=== PATIENT | female | born 2005 | race Two or more races ===

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

== ENCOUNTER 2024-06-24 17:15 | Inpatient (IN) | payer MEDICAID ==
[~2024-06-24] VITALS: Ht 157.5 cm; Wt 109.3 kg
[~2024-06-24 17:15] MED LIST: IBUP-1455 PO
[2024-06-24 19:21] LABS: Urine Bacteria FEW /hpf (None Seen); Urine Blood 3+ /uL (Negative); Urine Clarity Clear (Clear); Urine Color Light-Yellow (Yellow); Urine Mucus FEW (None Seen); Urine Protein, UAD Negative (Negative); Urine Urobilinogen Normal (Negative); Urine WBC 8 /hpf (0 - 5); Urine pH 5.5 (5.0-9.0)
[2024-06-24] MEDS: PIPERACILLIN-TAZOB 3.375GM 100 ML IV ONE (22:00)
[2024-06-24 22:09] LABS: Basophils # (auto) 0 10 ^3/uL (0-0.2); Basophils % (auto) 0.3 % (0.0-2.0); Eosinophils # (auto) 0.3 10 ^3/uL (0-0.8); Eosinophils % (auto) 1.8 % (0.0-7.0); Hematocrit 36.5 % (36.0-46.0); Hemoglobin 11.9 g/dL (12.2-16.2); Lymphocytes # (auto) 1.9 10 ^3/uL (0.4-5.4); Lymphocytes % (auto) 12.4 % (10.0-50.0); Mean Corpuscular Hemoglobin 27.2 pg (28.0-32.0); Mean Corpuscular Hgb Conc. 32.6 g/dL (32.0-36.0); Mean Corpuscular Volume 83.5 fL (80.0-100.0); Monocytes # (auto) 0.9 10 ^3/uL (0-1.3); Monocytes % (auto) 5.4 % (0.0-12.0); Neutrophils # (auto) 12.6 10 ^3/uL (1.6-8.6); Neutrophils % (auto) 80.1 % (37.0-80.0); Platelet Count (auto) 359 10^3/uL (140-450); Red Blood Cells 4.37 10^6/uL (4.0-5.20); White Blood Cell 15.7 10^3/uL (4.4-10.8)
[2024-06-24 22:27] LABS: Alanine Aminotransferase 12 U/L (7-40); Albumin 4.6 g/dL (3.2-4.8); Alkaline Phosphatase 77 U/L (46-116); Anion Gap 7 (5-15); Aspartate Aminotransferase 13 U/L (13-40); BUN/Creatinine Ratio 9.1 (10.0-20.0); Blood Urea Nitrogen 6 mg/dL (9-23); Calcium 10.1 mg/dL (8.7-10.4); Carbon Dioxide 26 mmol/L (20-31); Chloride 105 mmol/L (98-107); Glucose 93 mg/dL (74-106); Lipase 32 U/L (12-53); Potassium 4.3 mmol/L (3.5-5.1); Sodium 138 mmol/L (136-145)
[2024-06-24 22:28] LABS: Bilirubin, Total 0.7 mg/dL (0.2-1.0); Total Protein 7.9 g/dL (5.7-8.2)
[2024-06-24] MEDS: SODIUM CHLORIDE 0.9% 1,000 ML IV SCH (23:45)
[2024-06-24 23:47] LABS: Amphetamine Screen, Urine Neg (NEGATIVE); Barbiturate Scree,Urine Neg (NEGATIVE); Benzodiazephine Screen, Urine Neg (NEGATIVE); Cannabinoid Screen, Urine Neg (NEGATIVE); Cocaine Screen, Urine Neg (NEGATIVE); Opiate Scree,Urine Neg (NEGATIVE); Phencyclidine Screen, Urine Neg (NEGATIVE)
[2024-06-24 23:50] LABS: Prothrombin Time 10.6 sec (9.3-11.8)
[2024-06-25] VITALS (7 sets, daily range): BP systolic 103–160; BP diastolic 52–65; PULSE 102–120; RESP 16–20; TEMP 97.7–99.1; O2SAT 94–98
[2024-06-25] MEDS: PIPERACILLIN-TAZOB 3.375GM 100 ML IV SCH (02:07)
[2024-06-25] MEDS: SODIUM CHLORIDE 0.9% 1,000 ML IV ONE (02:10)
[2024-06-25] MEDS ORDERED: TRAZ-228 PO (02:57)
[2024-06-25] MEDS ORDERED: DESV100T8 PO (02:58)
[2024-06-25 07:29] LABS: Basophils # (auto) 0.1 10 ^3/uL (0-0.2); Basophils % (auto) 0.3 % (0.0-2.0); Eosinophils # (auto) 0.2 10 ^3/uL (0-0.8); Eosinophils % (auto) 1.4 % (0.0-7.0); Hematocrit 33.3 % (36.0-46.0); Hemoglobin 11.3 g/dL (12.2-16.2); Lymphocytes % (auto) 13.3 % (10.0-50.0); Mean Corpuscular Hemoglobin 28.2 pg (28.0-32.0); Mean Corpuscular Volume 83.2 fL (80.0-100.0); Monocytes % (auto) 6.8 % (0.0-12.0); Neutrophils # (auto) 11.9 10 ^3/uL (1.6-8.6); Neutrophils % (auto) 78.2 % (37.0-80.0); Platelet Count (auto) 337 10^3/uL (140-450); Red Blood Cells 4.01 10^6/uL (4.0-5.20); White Blood Cell 15.2 10^3/uL (4.4-10.8)
[2024-06-25 07:38] LABS: Alanine Aminotransferase 10 U/L (7-40); Albumin 4.2 g/dL (3.2-4.8); Alkaline Phosphatase 73 U/L (46-116); Anion Gap 7 (5-15); Aspartate Aminotransferase 12 U/L (13-40); BUN/Creatinine Ratio 7.2 (10.0-20.0); Bilirubin, Total 1.2 mg/dL (0.2-1.0); Blood Urea Nitrogen 6 mg/dL (9-23); Calcium 9.7 mg/dL (8.7-10.4); Carbon Dioxide 26 mmol/L (20-31); Chloride 106 mmol/L (98-107); Glucose 100 mg/dL (74-106); Potassium 3.9 mmol/L (3.5-5.1); Sodium 139 mmol/L (136-145)
[2024-06-25 07:39] LABS: Total Protein 7.3 g/dL (5.7-8.2)
[2024-06-25] MEDS ORDERED: ONDANSETRON HCL 4 MG/2 ML VIAL IV PRN (09:30)
[2024-06-25] MEDS ORDERED: ceFAZolin 2 GM/D5W100ml 100 ML IV ONE (12:21)
[2024-06-25] MEDS ORDERED: BUPIVACAINE 0.25% INJ 50ML VIAL ONE (12:34)
[2024-06-25] MEDS ORDERED: MIDAZOLAM HCL 2MG/2ML 2ml VIAL (1mg/ml) ONE (12:51)
[2024-06-25] MEDS ORDERED: fentaNYL CITRATE 100 MCG/2 ML VL ONE (12:51)
[2024-06-25] MEDS ORDERED: PROPOFOL 10 MG/ML 20 ML IV ONE ×2 (12:55→14:27)
[2024-06-25] MEDS ORDERED: ONDANSETRON HCL 4 MG/2 ML VIAL ONE (12:56)
[2024-06-25] MEDS ORDERED: LIDOCAINE 1% INJ PF 5ML AMP ONE (12:56)
[2024-06-25] MEDS ORDERED: ROCURONIUM 10MG/ML 10ML VIAL IV ONE (13:04)
[2024-06-25] MEDS ORDERED: MEPERIDINE HCL (50 MG/ML) 1 ML VIAL ONE (13:47)
[2024-06-25] MEDS: BUPIVACAINE 0.25% INJ 50ML VIAL IJ ONE (13:52)
[2024-06-25] MEDS ORDERED: NEOSTIGMINE 1 MG/ML INJ (10mg/10ML VIAL) ONE (14:28)
[2024-06-25] MEDS ORDERED: GLYCOPYRROLATE 0.2 MG/ML 1ML VIAL ONE (14:28)
[2024-06-25] MEDS ORDERED: HYDROmorphone HCL 2 MG/ML VL/or syr IV PRN ×2 (14:45)
[2024-06-25] MEDS ORDERED: ONDANSETRON HCL 4 MG/2 ML VIAL IV ONE (14:45)
[2024-06-25] MEDS: POLYETHYLENE GLYCOL 17 GM PWDR PO ONE (15:45)
[2024-06-25] MEDS: D5W/SOD CHL 0.45% 1,000 ML IV SCH ×2 (15:50→18:15)
[2024-06-25] MEDS ORDERED: ARIP1TAB63 PO (17:42)
[2024-06-25] MEDS: DOCUSATE SOD 100 MG CAP PO SCH (21:41)
[2024-06-25] MEDS: traZODone HCL 50 MG TAB PO SCH (21:41)
[2024-06-25] MEDS: MORPHINE SULFATE INJ 2 MG/ml SYRG IV PRN (21:42)
[2024-06-26] VITALS (8 sets, daily range): BP systolic 104–125; BP diastolic 44–78; PULSE 63–108; RESP 17–20; TEMP 98.1–99.2; O2SAT 90–97
[2024-06-26 05:56] LABS: Basophils # (auto) 0 10 ^3/uL (0-0.2); Basophils % (auto) 0.3 % (0.0-2.0); Eosinophils # (auto) 0.3 10 ^3/uL (0-0.8); Eosinophils % (auto) 2.5 % (0.0-7.0); Hematocrit 32.2 % (36.0-46.0); Hemoglobin 10.6 g/dL (12.2-16.2); Lymphocytes % (auto) 17.3 % (10.0-50.0); Mean Corpuscular Hemoglobin 27.7 pg (28.0-32.0); Mean Corpuscular Hgb Conc. 32.8 g/dL (32.0-36.0); Mean Corpuscular Volume 84.5 fL (80.0-100.0); Monocytes # (auto) 0.8 10 ^3/uL (0-1.3); Monocytes % (auto) 7.3 % (0.0-12.0); Neutrophils # (auto) 8.2 10 ^3/uL (1.6-8.6); Neutrophils % (auto) 72.6 % (37.0-80.0); Nucleated Red Blood Cells % 0.1 %; Platelet Count (auto) 310 10^3/uL (140-450); Red Blood Cells 3.81 10^6/uL (4.0-5.20); Red Cell Distribution Width 14.8 % (11.8-14.3); White Blood Cell 11.3 10^3/uL (4.4-10.8)
[2024-06-26 06:11] LABS: Anion Gap 7 (5-15); Calcium 9.3 mg/dL (8.7-10.4); Carbon Dioxide 24 mmol/L (20-31); Chloride 107 mmol/L (98-107); Potassium 4.1 mmol/L (3.5-5.1); Sodium 138 mmol/L (136-145)
[2024-06-26 06:17] LABS: BUN/Creatinine Ratio 7.5 (10.0-20.0); Blood Urea Nitrogen < 5 mg/dL (9-23); Glucose 98 mg/dL (74-106)
[2024-06-27 01:00] VITALS: BP 103/59; PULSE 92; RESP 18; TEMP 98.3; O2SAT 96
[2024-06-27 05:00] VITALS: BP 107/63; PULSE 88; RESP 19; TEMP 98; O2SAT 95
[2024-06-27 08:30] VITALS: PULSE 85; RESP 16; O2SAT 97
[2024-06-27 08:38] VITALS: BP 136/71; PULSE 85; RESP 16; TEMP 97.6; O2SAT 97
[2024-06-27 12:43] VITALS: BP 118/69; PULSE 75; RESP 18; TEMP 97.9; O2SAT 93
[2024-06-27] MEDS ORDERED: CEPH500C PO (13:46)
[2024-06-27 13:56] LABS: Basophils # (auto) 0 10 ^3/uL (0-0.2); Basophils % (auto) 0.3 % (0.0-2.0); Eosinophils # (auto) 0.3 10 ^3/uL (0-0.8); Eosinophils % (auto) 3.2 % (0.0-7.0); Hematocrit 35.4 % (36.0-46.0); Hemoglobin 11.9 g/dL (12.2-16.2); Lymphocytes # (auto) 1.5 10 ^3/uL (0.4-5.4); Lymphocytes % (auto) 16.7 % (10.0-50.0); Mean Corpuscular Hemoglobin 27.9 pg (28.0-32.0); Mean Corpuscular Hgb Conc. 33.6 g/dL (32.0-36.0); Monocytes # (auto) 0.7 10 ^3/uL (0-1.3); Monocytes % (auto) 7.2 % (0.0-12.0); Neutrophils # (auto) 6.7 10 ^3/uL (1.6-8.6); Neutrophils % (auto) 72.6 % (37.0-80.0); Nucleated Red Blood Cells % 0.1 %; Platelet Count (auto) 366 10^3/uL (140-450); Red Blood Cells 4.27 10^6/uL (4.0-5.20); Red Cell Distribution Width 14.4 % (11.8-14.3); White Blood Cell 9.2 10^3/uL (4.4-10.8)
[2024-06-27 14:09] LABS: Chloride 107 mmol/L (98-107); Potassium 4.1 mmol/L (3.5-5.1); Sodium 139 mmol/L (136-145)
[2024-06-27 14:10] LABS: Anion Gap 8 (5-15); Calcium 10.1 mg/dL (8.7-10.4); Carbon Dioxide 24 mmol/L (20-31)
[2024-06-27 14:15] LABS: BUN/Creatinine Ratio 12.3 (10.0-20.0); Blood Urea Nitrogen 8 mg/dL (9-23); Glucose 101 mg/dL (74-106)
[2024-06-27 14:30] VITALS: BP 118/69; PULSE 75; RESP 18; TEMP 97.9; O2SAT 93
== END 2024-06-27 15:40 | disposition home or self-care (01) | DRG 710 ==
LOC: ER 17:20 → OVERFLOW 23:22 → WEST WING 06-25 01:27
PROVIDERS: ADMIT Internal Medicine; ATTEND Internal Medicine
PROC: 0W9G4ZZ Drainage of Peritoneal Cavity, Percutaneous Endoscopic Approach (ICD-10-PCS; 2024-06-25)
PROC: 0DTJ4ZZ Resection of Appendix, Percutaneous Endoscopic Approach (ICD-10-PCS; principal; 2024-06-25 12:53)
DX: A41.9 Sepsis, unspecified organism (principal); K35.80 Unspecified acute appendicitis; F12.90 Cannabis use, unspecified, uncomplicated; K59.00 Constipation, unspecified; N39.0 Urinary tract infection, site not specified; F32.9 Major depressive disorder, single episode, unspecified; N73.9 Female pelvic inflammatory disease, unspecified
CPT/HCPCS: 36415; 74176; 80048; 80053; 80307; 81001; 83036; 83690; 83735; 84702; 85025; 85610; 85730; 86850; 86900; 86901; G0378; J2250; J2405; J2543; J2704; J3490